=== PATIENT | female | born 1985 | race Asian ===

== ENCOUNTER 2017-09-12 22:35 | Emergency (ER) | payer OTHER ==
[2017-09-12 22:47] VITALS: BP 126/63; PULSE 70; RESP 16; TEMP 98; O2SAT 99
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
[2017-09-13] MEDS ORDERED: IBUPROFEN 600 MG TAB PO ONE
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
[2017-09-13] MEDS ORDERED: IBUP-232 PO (00:46)
[2017-09-13 01:13] VITALS: RESP 16
[2017-09-13 01:14] VITALS: BP 111/68
== END 2017-09-13 01:20 | disposition home or self-care (01) ==
LOC: PHED 22:35
DX: M79.602 Pain in left arm (principal)
CPT/HCPCS: 73030; 99283